=== PATIENT | female | born 1990 | race Caucasian/White ===

== ENCOUNTER 2016-08-09 15:17 | Emergency (ER) | payer OTHER ==
[~2016-08-09] VITALS: Ht 160 cm; Wt 80.7 kg
[2016-08-09 15:18] VITALS: BP 105/63
[2016-08-09] MEDS ORDERED: CALC600T21 PO (15:30)
[2016-08-09] MEDS ORDERED: PREN1TAB11 PO (15:30)
[2016-08-09 16:19] LABS: BASO % 0.2 % (0.0-1.0); EOS % 0.6 % (0.0-3.0); LARGE UNSTAINED CELL # 0.1 K/mm3 (0.0-0.4); LARGE UNSTAINED CELL % 1.2 % (0.0-4.0); LYMPH % 23.8 % (24.0-44.0); MEAN CORPUSCULAR HEMOGLOBIN 28.5 pg (27.0-33.0); MEAN CORPUSCULAR HGB CONC 33.8 g/dl (32.0-36.5); MEAN CORPUSCULAR VOLUME 84.1 fl (80.0-96.0); MONO # 0.4 K/mm3 (0.0-0.8); MONO % 4.5 % (0.0-5.0); NEUTROPHILS # 5.7 K/mm3 (1.8-7.7); NEUTROPHILS % 69.7 % (36.0-66.0); PLATELET COUNT, AUTOMATED 243 k/mm3 (150-450); RED CELL DISTRIBUTION WIDTH 12.8 % (11.5-14.5); WHITE BLOOD COUNT 8.1 K/mm3 (4.0-10.0)
--- NOTE | 2016-08-09 19:28 | HPE ---
DATE OF ADMISSION: 08/09/2016 This lady is a 26-year-old 4, para 2, abortio 1, whose last period was 01/14/2016, estimated date of confinement (EDC) 10/20/2016 at 29+ weeks of gestation, came up from the emergency department because she fell up the stairs 3 hours ago, hit her abdomen, and has had decreased movement. PAST HISTORY: In August 2012 at 39 weeks, arrest of dilatation at 4 cm. Had a section, male, 7 pounds 5 ounces. In March 2014 at 39 weeks, repeat section, male, 7 pounds 12 ounces, In June 2015 at 6 weeks had a spontaneous . RISK FACTORS: She is Rh negative and had two previous sections. LABORATORY WORK: Is A negative. She just received RhoGAM. HIV negative, hepatitis negative, RPR negative. Gonorrhea and chlamydia are negative, rubella immune, Varicella nonimmune. Pap normal. Urine negative. One-hour glucose 86. She is in no distress. Symphysis fundus height is 30, nontender uterus. Four-quadrant bowel sounds are noted. She is normocephalic, atraumatic. Neck: Full range of motion. Pupils equal and reactive to light. Chest is clear bilaterally to bases. No wheezes or rhonchi. Distal pulses symmetric. No evidence of deep vein thrombosis (DVT), pulmonary embolism (PE), or superficial phlebitis. Back as normal. No costovertebral angle (CVA) tenderness. Category 1 strip as noted. Ultrasounds shows a BPD of 8.1, vertex, presenting occiput posterior (OP). Placenta is posterior. No bleeding. Amniotic fluid index (MELISA) total 19.2, and the cervix is closed. Four limb movement is noted. Her hemoglobin 10.2, hematocrit 30.0, platelets 243. Kleihauer test is negative. Blood pressure 127/55, respirations 16, pulse 91, temperature 98.2. Urine is 1010, trace protein, and small ketones. She was given a jug of water to drink. The rest of the examination is unremarkable. No palpitations, chest pain. She is not bleeding. Neurologic complete. No incontinence, urgency, frequency. No nausea, vomiting, diarrhea, constipation. No diabetic issues. PAST SURGICAL HISTORY: Unremarkable. Does not smoke or drink. Does not abuse drugs. She is . There is no domestic violence. SUMMARY: We have a 29+ week of gestation who fell up the stairs. Reactive strip. Ultrasound is normal. No contractions. No vaginal bleeding or loss. Discharge with precautions and has an appointment in August 2016.
== END 2016-08-09 16:21 | disposition admitted as inpatient to this hospital (09) ==
LOC: M ED 15:59
DX: O9A.213 Injury, poisoning and certain other consequences of external causes complicating pregnancy, third trimester (principal); R10.9 Unspecified abdominal pain; W10.8XXA Fall (on) (from) other stairs and steps, initial encounter; Y92.009 Unspecified place in unspecified non-institutional (private) residence as the place of occurrence of the external cause; Y93.01 Activity, walking, marching and hiking; Y99.8 Other external cause status; O36.8130 Decreased fetal movements, third trimester, not applicable or unspecified; Z3A.29 29 weeks gestation of pregnancy

== ENCOUNTER 2016-08-09 16:21 | Outpatient (CLI) | payer OTHER ==
[~2016-08-09] VITALS: Ht 160 cm; Wt 79.0 kg
[~2016-08-09 16:21] MED LIST: CALC600T21 PO; PREN1TAB11 PO
[2016-08-09 16:35] VITALS: BP 127/55
== END 2016-08-09 17:38 | disposition home or self-care (01) ==
LOC: M LDO 16:21
PROVIDERS: ATTEND Obstetrics & Gynecology
DX: O36.8130 Decreased fetal movements, third trimester, not applicable or unspecified (principal); Z3A.29 29 weeks gestation of pregnancy

== ENCOUNTER 2016-10-16 11:22 | Inpatient (IN) | payer OTHER ==
[2016-10-16] VITALS (7 sets, daily range): BP systolic 109–162; BP diastolic 59–94
[~2016-10-16] VITALS: Ht 160 cm; Wt 76.0 kg
[~2016-10-16 11:22] MED LIST changes: -CALC600T21 PO; +CALC600T60 PO
[2016-10-16] MEDS ORDERED: LACTATED RINGER'S 1000 ML IV STA (11:27)
[2016-10-16 12:04] LABS: MEAN CORPUSCULAR HEMOGLOBIN 29.4 pg (27.0-33.0); MEAN CORPUSCULAR HGB CONC 34.9 g/dl (32.0-36.5); MEAN CORPUSCULAR VOLUME 84.5 fl (80.0-96.0); RED CELL DISTRIBUTION WIDTH 13.4 % (11.5-14.5); WHITE BLOOD COUNT 7.3 K/mm3 (4.0-10.0)
[2016-10-16] MEDS ORDERED: FERR325T3 PO (12:20)
[2016-10-16] MEDS: LR 1,000 ML IV SCH ×2 (13:38→22:39)
[2016-10-16] MEDS ORDERED: BICITRA 30ML SOLN UDC PO ONE (16:30)
[2016-10-16] MEDS ORDERED: MORPHINE PRES-FREE INJ 10 MG/10 ML VIAL (J2274) As Ordered ONE (16:59)
[2016-10-16] MEDS ORDERED: OXYTOCIN INJ 10 UNITS/ML VIAL (J2590) As Ordered ONE (17:04)
[2016-10-16] MEDS ORDERED: METOCLOPRAMIDE INJ 10MG/2ML VIAL (J2765) IV PRN ×3 (17:07→18:45)
[2016-10-16] MEDS ORDERED: NALBUPHINE HCL 10 MG/ML AMP (J2300) IV PRN ×2 (17:07)
[2016-10-16] MEDS ORDERED: ONDANSETRON 4MG/2ML VIAL (J2405) IV PRN ×4 (17:07→18:45)
[2016-10-16] MEDS ORDERED: NALOXONE INJ 0.4 MG/1 ML VIAL (J2310) IV PRN ×4 (17:07)
[2016-10-16] MEDS ORDERED: ePHEDrine SULFATE 25 MG/5 ML(5MG/ML) SYRINGE As Ordered ONE (17:14)
[2016-10-16] MEDS ORDERED: KETOROLAC 60 MG/2 ML VIAL (J1885) As Ordered ONE (17:31)
[2016-10-16] MEDS ORDERED: PHENYLephrine HCL 500 MCG/5 ML (100MCG/ML) SYRINGE (J2370) As Ordered ONE (17:31)
[2016-10-16] MEDS ORDERED: ONDANSETRON 4MG/2ML VIAL (J2405) As Ordered ONE (17:31)
[2016-10-16] MEDS ORDERED: MOM 30ML SUSPENSION UDC PO PRN (18:30)
[2016-10-16] MEDS ORDERED: DOCUSATE SODIUM 100 MG CAP PO PRN (18:30)
[2016-10-16] MEDS ORDERED: PERCOCET 5MG/325MG TAB PO PRN ×2 (18:30→18:45)
[2016-10-16] MEDS ORDERED: PROMETHAZINE 25 MG TAB PO PRN (18:30)
[2016-10-16] MEDS ORDERED: RHOGAM 300 MCG (1500 IU) INJ (J2790) IM SCH (18:30)
[2016-10-16] MEDS ORDERED: MEASLES,MUMPS,RUBELLA VACCINE INJ (MMR-II) (90707) SC SCH (18:30)
[2016-10-16] MEDS ORDERED: METHYLERGONOVINE MALEATE 0.2 MG TAB PO PRN (18:30)
[2016-10-16] MEDS ORDERED: LR 1,000 ML IV SCH (18:45)
[2016-10-16] MEDS ORDERED: fentaNYL 100 MCG/2 ML INJECTION (J3010) IV PRN (18:45)
[2016-10-16] MEDS ORDERED: OXYTOCIN 30 UNITS IN 0.9% NaCl 500ML IV BAG (J2590) As Ordered ONE (20:58)
[2016-10-16] MEDS ORDERED: OXYTOCIN DRIP 30 UNITS in APPROPRIATE DILUENT 1 EA IV SCH (21:15)
[2016-10-16 21:45] LABS: MEAN CORPUSCULAR HEMOGLOBIN 28.4 pg (27.0-33.0); MEAN CORPUSCULAR HGB CONC 33.4 g/dl (32.0-36.5); MEAN CORPUSCULAR VOLUME 85.1 fl (80.0-96.0); RED CELL DISTRIBUTION WIDTH 13.6 % (11.5-14.5); WHITE BLOOD COUNT 11.1 K/mm3 (4.0-10.0)
[2016-10-16] MEDS ORDERED: METHYLERGONOVINE MALEATE 0.2 MG TAB PO SCH (22:30)
[2016-10-17] MEDS: KETOROLAC 30 MG/ML VIAL (J1885) IV SCH ×4 (00:21→17:31)
[2016-10-17 02:00] VITALS: BP 124/65
[2016-10-17] MEDS: LR 1,000 ML IV SCH ×3 (03:27→19:27)
[2016-10-17] MEDS: METHYLERGONOVINE MALEATE 0.2 MG TAB PO SCH ×3 (05:07→17:30)
[2016-10-17 05:40] VITALS: BP 118/58
[2016-10-17 07:18] LABS: MEAN CORPUSCULAR HEMOGLOBIN 29.1 pg (27.0-33.0); MEAN CORPUSCULAR VOLUME 86.5 fl (80.0-96.0); WHITE BLOOD COUNT 7.1 K/mm3 (4.0-10.0)
[2016-10-17 07:19] LABS: MEAN CORPUSCULAR HGB CONC 33.7 g/dl (32.0-36.5); RED CELL DISTRIBUTION WIDTH 13.9 % (11.5-14.5)
[2016-10-17] MEDS: PRENATAL VITAMINS CHEWABLE TABLET PO SCH (08:53)
[2016-10-17 09:15] VITALS: BP_SYST 109; BP_SYST 111; BP_SYST 123; BP_DIAS 52; BP_DIAS 53; BP_DIAS 56
[2016-10-17] MEDS: PERCOCET 5MG/325MG TAB PO PRN ×4 (09:35→22:02)
[2016-10-17 10:32] VITALS: BP 114/57
[2016-10-17 14:00] VITALS: BP 106/55
[2016-10-17 18:35] VITALS: BP 118/57
[2016-10-18] MEDS: IBUPROFEN 800 MG TAB PO PRN ×3 (01:04→19:55)
[2016-10-18] MEDS ORDERED: IBUPROFEN 800 MG TAB PO PRN (02:00)
[2016-10-18] MEDS ORDERED: IBUPROFEN 800 MG TAB PO SCH (02:00)
[2016-10-18] MEDS: PERCOCET 5MG/325MG TAB PO PRN ×4 (04:52→21:44)
[2016-10-18 05:14] LABS: MEAN CORPUSCULAR HEMOGLOBIN 29.2 pg (27.0-33.0); MEAN CORPUSCULAR HGB CONC 33.6 g/dl (32.0-36.5); MEAN CORPUSCULAR VOLUME 86.9 fl (80.0-96.0); RED CELL DISTRIBUTION WIDTH 14.2 % (11.5-14.5); WHITE BLOOD COUNT 6.2 K/mm3 (4.0-10.0)
[2016-10-18 05:27] VITALS: BP 109/53
[2016-10-18] MEDS ORDERED: diphenhydrAMINE 25 MG CAP PO ONE (06:45)
[2016-10-18] MEDS ORDERED: ACETAMINOPHEN TAB 650MG DOSE (2X325MG) PO ONE (06:45)
--- NOTE | 2016-10-18 06:54 | IPNPDOC ---
Text Note Date of Service The patient was seen on 10/18/16. NOTE 26y/o P3 now POD#2 from [facility]. Doing well overall, but states having some dizziness and light-headedness when stansd and walks. Uncomplicated third C- section. Denies N/V, well. Completed methergine series. See previous notes. Has been OOB, ambulatory in place. No CP/SOB/LP. O: VSS/AF. Gen: A&Ox3, NAD Resp: CTAB CV: NSR ABD: Gravid/BS present. Ext: 2+ BLE DP/PT, Neg homans BLE Inc CDI Starting HGB 9.5 HGB: (this am): 6.8, PLT 183 A/P: - Now POD#2 with known anemia with starting Hct ~27. Today HCT is 20.2 and has hypovolemia/anemia sx's. No concern for delayed PPH, believe due to low starting Hct. -Transfuse 2 units PRBC's. - Obtain another CBC 4 hrs after transfusion is complete. D/w patient/spouse about this this am. - Routine Postoperative care, likely d/c tomorrow AM Sessions Brittany CORDOBA, I+O VSBrittany I+O Laboratory Tests 10/17/16 06:53 Red Blood Count 2.45 L, Mean Corpuscular Volume 86.5, Mean Corpuscular Hemoglobin 29.1, Mean Corpuscular Hemoglobin Concent 33.7, Red Cell Distribution Width 13.9 10/18/16 05:10 Red Blood Count 2.32 L, Mean Corpuscular Volume 86.9, Mean Corpuscular Hemoglobin 29.2, Mean Corpuscular Hemoglobin Concent 33.6, Red Cell Distribution Width 14.2 Vital Signs Date Time Temp Pulse Resp B/P (MAP) Pulse Ox O2 Delivery O2 Flow Rate FiO2 10/18/16 05:27 98.1 84 16 109/53 (71) 100 Room Air I&O- Last 24 Hours up to 6 AM 10/18/16 06:00 Intake Total 1600 ml Output Total 1500 ml Balance 100 ml SESSIONS,PAULINE Michelle MD Oct 18, 2016 06:54
[2016-10-18] MEDS: PRENATAL VITAMINS CHEWABLE TABLET PO SCH (08:21)
[2016-10-18] MEDS ORDERED: ADACEL/BOOSTRIX VACCINE (DIPHTH/PERTUSS/ACELL/TETANUS)0.5ML SYR (90715) IM ONE (09:00)
[2016-10-18] MEDS: NS 1,000 ML IV SCH (09:58)
[2016-10-18 18:00] VITALS: BP 118/58
[2016-10-18 19:04] LABS: MEAN CORPUSCULAR HEMOGLOBIN 29.8 pg (27.0-33.0); MEAN CORPUSCULAR HGB CONC 33.8 g/dl (32.0-36.5); MEAN CORPUSCULAR VOLUME 88.1 fl (80.0-96.0); RED CELL DISTRIBUTION WIDTH 14.4 % (11.5-14.5); WHITE BLOOD COUNT 7.7 K/mm3 (4.0-10.0)
[2016-10-19] MEDS: PERCOCET 5MG/325MG TAB PO PRN ×3 (01:47→15:02)
[2016-10-19] MEDS: IBUPROFEN 800 MG TAB PO PRN (05:52)
[2016-10-19 06:20] VITALS: BP 124/60
[2016-10-19 06:22] LABS: BASO % 0.5 % (0.0-1.0); EOS # 0.2 K/mm3 (0.0-0.50); EOS % 2.6 % (0.0-3.0); LARGE UNSTAINED CELL # 0.2 K/mm3 (0.0-0.4); LARGE UNSTAINED CELL % 3.1 % (0.0-4.0); LYMPH # 2.2 K/mm3 (1.5-6.5); LYMPH % 28.7 % (24.0-44.0); MEAN CORPUSCULAR HEMOGLOBIN 29.7 pg (27.0-33.0); MEAN CORPUSCULAR HGB CONC 33.5 g/dl (32.0-36.5); MEAN CORPUSCULAR VOLUME 88.6 fl (80.0-96.0); MONO # 0.4 K/mm3 (0.0-0.8); MONO % 4.6 % (0.0-5.0); NEUTROPHILS # 4.7 K/mm3 (1.8-7.7); NEUTROPHILS % 60.6 % (36.0-66.0); PLATELET COUNT, AUTOMATED 191 k/mm3 (150-450); RED CELL DISTRIBUTION WIDTH 14.4 % (11.5-14.5); WHITE BLOOD COUNT 7.7 K/mm3 (4.0-10.0)
[2016-10-19] MEDS: NS 1,000 ML IV SCH (06:30)
[2016-10-19] MEDS ORDERED: ADACEL/BOOSTRIX VACCINE (DIPHTH/PERTUSS/ACELL/TETANUS)0.5ML SYR (90715) IM ONE (09:00)
[2016-10-19] MEDS: PRENATAL VITAMINS CHEWABLE TABLET PO SCH (09:51)
--- NOTE | 2016-10-19 10:16 | IPN ---
DATE: 10/19/2016 This patient and requested circumcision of their male . There were having some difficulty in making the decision of whether of not to have it. They went ahead and decided on a positive note to have circumcision. We went through the procedure of the penile block, the aftercare, the medical and nonmedical indications and the risk factors involved in doing circumcision. They have had two previous boys circumcised, one was uneventful the other one had the issues and I think this is where the hesitancy to perform the third circumcision. In any case, after discussing risks and benefits, answering all questions in a 20-minute prolonged [id number] discussion, the patient signed and witnessed consent form. We await the clearance by the chief talent officer.
--- NOTE | 2016-10-19 11:16 | DSES ---
DATE OF ADMISSION: 10/16/2016 DATE OF DISCHARGE: This lady is a 26-year-old, 4, now para 3, having had a repeat section for a live male , 8 pounds 2 ounces (3688 grams), of 7/8 at one and five minutes respectively. Her risk factors is that she has had two previous sections, depression, anemia, Rh negative. She had decreased movement. She had a Methergine series and a blood transfusion. She started off with a low hemoglobin/hematocrit. Admission hemoglobin/hematocrit were 7.8 and 23.3. She got to the point of a hemoglobin of 6.8 and hematocrit of 20.2. Was counseled regarding blood transfusion. Had 1 unit and had some reactions so the second unit was not given. A repeat of her CBC indicate her hemoglobin was 8.7, hematocrit 26.0 and platelets were 191. On discharge, her blood pressure is 124/60, respirations 18, pulse 88, temperature 97.8. She was not symptomatic at the present time. She is breast-feeding, mobilizing, having bowel movement, bowel sounds and voiding well. The rest of the examination, she is normocephalic, atraumatic. Neck full range of motion. Pupils equal and reactive to light. Distal pulses symmetric. No evidence of deep venous thrombosis (DVT), pulmonary embolism (PE), or superficial phlebitis. Lungs are clear bilaterally to bases. No wheezes or rhonchi. No costovertebral angle (CVA) tenderness. Abdomen soft. Four quadrant bowel sounds are noted, and incision is clean and dry. She has skin tapes. We counseled regarding the method of removal of the skin tapes. She has no rashes, lesions or pruritus. No arthralgia, myalgia. Not complaining of cough, wheeze, shortness of breath or dyspnea on exertion. No chest pain. Not bleeding. Neuro complete. Uterus is 2 below. Lochia is moderate. Perineum is intact. She has no urgency, frequency. Has no diabetic issues. 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 Past surgical history: (C) section times two. She does not smoke, drink or abuse drugs. She is , and there is no domestic violence. We discussed phlebitis, cystitis, mastitis, endometritis and cellulitis, diet, exercise, pain management, perineal, breast and wound care. Patient is planning on discharge today. She was given a prescription for iron. Her medications were prescribed and also a breast pump was given. She was told to have a 2-week incision check, which we will repeat her complete blood count (CBC) and a 6-week check. In summary, we have a term gestation having a repeat section times three, discharged in stable condition.
[2016-10-19] MEDS ORDERED: COLA100C5 OR (14:08)
[2016-10-19] MEDS ORDERED: IBUP80TA OR (14:08)
[2016-10-19] MEDS ORDERED: MOM30SS OR (14:08)
[2016-10-19] MEDS ORDERED: OXYC1TAB23 PO (14:08)
[2016-10-19] MEDS ORDERED: OXYC1TAB23 OR (14:08)
--- NOTE | 2016-11-08 15:45 | RO ---
DATE OF PROCEDURE: 10/16/2016 PREOPERATIVE DIAGNOSIS: 1. Term . 2. History of section times two. 3. Decreased movement. POSTOPERATIVE DIAGNOSIS: 1. Term . 2. History of section times two. 3. Decreased movement. PROCEDURE: Repeat Low Transverse Section SURGEON: Dr. César Mejia USABILITY ENGINEER: Dr. Rich Mar ANESTHESIOLOGIST: Dr. Erazo ANESTHESIA: Spinal. IV FLUIDS: 1900 mL. ESTIMATED BLOOD LOSS: 500 mL. URINE OUTPUT: 50 mL. Subsequent Apgars 7 and 8 on a healthy male , weight 3688. The risks, benefits, indications and alternatives of the procedure were reviewed with the patient and informed consent was obtained. The patient was taken to the operating room where spinal anesthesia was obtained without difficulty. She was then prepped and draped in a normal sterile fashion in dorsal supine position with a leftward tilt. A Pfannenstiel skin incision was made with a scalpel and carried through to the underlying layer of fascia. The fascia was incised in midline and extended laterally with Ureña scissors. The superior aspect of the fascial incision was grasped with Boyd clamps, elevated and the underlying rectus muscle dissected off bluntly aided by Ureña scissors and Bovie. Attention was then turned to the inferior aspect of the incision, which in a similar fashion, was grasped, tented up with Boyd clamps, and the rectus muscle was also dissected off bluntly aided with Ureña scissors. The rectus was then in midline. The peritoneum was identified, tented up and entered digitally. The peritoneal incision was then extended horizontally and superiorly with good visualization of the bladder. A bladder blade was then introduced. Another bladder flap was created by grasping the vesicouterine peritoneum and noting to be below the pending hysterotomy site. It was entered sharply with Metzenbaum scissors and extended laterally creating a bladder flap. After a bladder flap was reintroduced, the lower uterine segment was incised in a transverse fashion with a scalpel and the amniotic sac was artificially ruptured productive of clear fluid. The uterine incision was extended manually in a superolateral fashion, the bladder blade was removed and the was found to be in a cephalic presentation and delivered through the hysterotomy site without complication. The cord was double clamped and cut. The was handed off to the awaiting dry wall sprayer. Cord blood gases were obtained. The placenta was then removed with gentle traction on the umbilical cord. The uterus was exteriorized and cleared of all clots and debris. After a bladder blade was reintroduced, the uterine incision was closed with #0 Monocryl in a running locked fashion. A second layer of #0 Monocryl was used to imbricate the hysterotomy site. The posterior cul-de-sac was then irrigated with warm saline and the uterus was reintroduced into the abdomen, evaluating the hysterotomy site for approximately 60 seconds noting no further bleeding. The bladder blade was removed and the hysterotomy without pressure was again noted to be hemostatic. The fascia was reapproximated with #0 Vicryl in a running fashion. The subcutaneous layer was closed with #3-0 Vicryl in multiple interrupted fashion. The skin was closed with #4-0 Monocryl in a subcuticular fashion. The incision was then dressed with a pressure dressing and Steri-Strips to the site in routine fashion. At the completion of the case, bimanual exam performed with good uterine tone and minimal vaginal bleeding. The patient tolerated the procedure well. Sponge, laps, and needle counts were correct times three. The patient was taken to the recovery room in stable condition. 2 grams of Ancef were given prior to skin incision. MTDD
== END 2016-10-19 15:25 | disposition home or self-care (01) | DRG 766 ==
LOC: M LDI 11:22 → M OBS 19:57
PROVIDERS: ADMIT Student in an Organized Health Care Education/Training Program; ATTEND Student in an Organized Health Care Education/Training Program
PROC: 10D00Z1 Extraction of Products of Conception, Low, Open Approach (ICD-10-PCS; principal; 2016-10-16 16:58)
PROC: 30253N1 (ICD-10-PCS; 2016-10-18)
DX: O36.8130 Decreased fetal movements, third trimester, not applicable or unspecified (principal); O99.02 Anemia complicating childbirth; O34.211 Maternal care for low transverse scar from previous cesarean delivery; D64.9 Anemia, unspecified; Z3A.39 39 weeks gestation of pregnancy; Z37.0 Single live birth

== ENCOUNTER → 2017-09-02 | Outpatient (CLI) | payer OTHER | LOC: M RAD 09:55 | DX: Z39.1 Encounter for care and examination of lactating mother (principal); N64.4 Mastodynia | CPT/HCPCS: 76642 ==

== ENCOUNTER → 2018-02-02 | Outpatient (REF) | payer OTHER | LOC: M SFHCLERA 11:12 | DX: J02.9 Acute pharyngitis, unspecified (principal) ==

== ENCOUNTER → 2018-04-19 | Outpatient (REF) | payer OTHER ==
[~2018-04-19] MED LIST changes: +COLA100C5 OR; +FERR325T3 PO; +IBUP80TA OR; +MOM30SS OR; +OXYC1TAB23 OR; +OXYC1TAB23 PO
== END ==
LOC: M SFHCLERA 18:19
PROVIDERS: ATTEND Nurse Practitioner Family
DX: J02.9 Acute pharyngitis, unspecified (principal)

== ENCOUNTER → 2018-05-24 | Outpatient (CLI) | payer OTHER ==
--- NOTE | 2018-05-24 10:23 | REP ---
Chest two views HISTORY: Shortness of breath Comparison: None The lungs are clear. The heart is normal in size. The pulmonary vasculature is normal in appearance. The bony structure is intact. IMPRESSION: No acute disease. Electronically Signed by Vignesh Daily MD 05/24/2018 10:15 A
== END ==
LOC: M LRY 09:48
PROVIDERS: ATTEND Nurse Practitioner Family
DX: R06.02 Shortness of breath (principal)

== ENCOUNTER → 2018-06-02 | Outpatient (CLI) | payer OTHER ==
--- NOTE | 2018-06-02 16:23 | REP ---
MAXILLOFACIAL CT WITHOUT CONTRAST: HISTORY: Chronic sinusitis. Mucosal thickening is present in the sinuses. There is almost complete opacification of the maxillary sinuses. Mild mucosal thickening is present in the ethmoid, right frontal and left sphenoid sinuses. Minimal mucosal thickening is present in the left frontal and right sphenoid sinus. Mucosal thickening involves the ostiomeatal units. The middle and inferior nasal turbinates are partially paradoxical. There is minimal deviation of the nasal septum to the right. The cribriform plate, medial cade of the orbits and optic canals are intact. The carotid canals form a segment of the posterolateral cade of the sphenoid sinus. The sphenoid sinus septum inserts into the right internal carotid canal wall. IMPRESSION: Sinus mucosal thickening as described above. Electronically Signed by Vignesh Daily MD 06/02/2018 04:28 P
== END ==
LOC: M RAD 15:42
PROVIDERS: ATTEND Family Medicine
DX: J32.9 Chronic sinusitis, unspecified (principal)

== ENCOUNTER → 2018-11-19 | Outpatient (REF) | payer OTHER | LOC: M LAB REF 16:49 | PROVIDERS: ATTEND Internal Medicine Endocrinology, Diabetes & Metabolism | DX: E04.2 Nontoxic multinodular goiter (principal) ==

== ENCOUNTER → 2020-04-16 | Outpatient (REF) | payer OTHER | LOC: M LAB REF 13:55 | PROVIDERS: ATTEND Physician Assistant | DX: D23.39 Other benign neoplasm of skin of other parts of face (principal) | CPT/HCPCS: 11102; 11200; 88305; G0463 ==

== ENCOUNTER → 2020-11-05 | Outpatient (REF) | payer OTHER | LOC: M LAB REF 11:20 | PROVIDERS: ATTEND Physician Assistant | DX: J02.9 Acute pharyngitis, unspecified (principal) ==